=== PATIENT | female | born 1955 | race Caucasian/White ===

== ENCOUNTER 2024-10-20 16:50 | Emergency (ER) | payer OTHER ==
[~2024-10-20] VITALS: Ht 162.6 cm; Wt 75.0 kg
[2024-10-20 16:54] VITALS: TEMP 36.7; O2SAT 96
[2024-10-20 18:17] VITALS: BP 151/80; PULSE 108; RESP 18
[2024-10-20] MEDS: TETANUS, DIPHTHERIA, PERTUSSIS VAC/PF 0.5ML (>10YR OLD) IM ONE (18:17)
[2024-10-20] MEDS: LIDOCAINE HCL/EPINEPHRINE 1%-EPI 1:100,000 20ML VIAL INFIL ONE (18:17)
[2024-10-20] MEDS: IBUPROFEN 400MG TABLET PO ONE (18:17)
[2024-10-20] MEDS ORDERED: IBUP-2028 MT (20:31)
== END 2024-10-20 20:50 | disposition home or self-care (01) ==
LOC: ER 16:50
DX: S01.81XA Laceration without foreign body of other part of head, initial encounter (principal); S09.90XA Unspecified injury of head, initial encounter; M54.50 Low back pain, unspecified; I10 Essential (primary) hypertension; E78.00 Pure hypercholesterolemia, unspecified; E11.9 Type 2 diabetes mellitus without complications; W22.09XA Striking against other stationary object, initial encounter; Y93.89 Activity, other specified; Y92.89 Other specified places as the place of occurrence of the external cause; Y99.8 Other external cause status
CPT/HCPCS: 99285; 70450; 72131; 90715; 12013; 90471; J2004